=== PATIENT | female | born 1950 | race Caucasian/White ===

== ENCOUNTER 2016-11-14 09:00 | Day surgery (SDC) | payer MEDICARE ==
[~2016-11-14 09:00] MED LIST: Buffered Lidocaine 0.9% SYRIN* 5 ML/SYR SYRINGE INTRADERM ONE
[2016-11-14] MEDS ORDERED: Midazolam* 1 MG/ML 2 ML VIAL (2 MG) ONE (12:05)
[2016-11-14 12:57] VITALS: BP 127/61
[2016-11-14] MEDS ORDERED: Cyclopentolate 1% OPTH.SOL* 2 ML BTL ONE (13:55)
[2016-11-14] MEDS ORDERED: Povidone Iodine 5% OPTH* 30 ML BTL ONE (13:55)
[2016-11-14] MEDS ORDERED: Phenylephrine 2.5% OPTH.SOL* 2 ML BTL ONE (13:55)
[2016-11-14] MEDS ORDERED: Flurbiprofen 0.03% OPTH.SOL* 2.5 ML BTL ONE (13:55)
[2016-11-14] MEDS ORDERED: acetaZOLAMIDE TAB* 250 MG ONE (13:55)
[2016-11-14] MEDS ORDERED: Proparacaine 0.5% OPHTH.SOL* 15 ML BTL ONE (13:55)
[2016-11-14] MEDS ORDERED: Lidocaine 1% MPF* 2 ML VIAL ONE (13:55)
[2016-11-14] MEDS ORDERED: Lidocaine 1% MPF wEPI 200,000* 30 ML SDV ONE (13:55)
[2016-11-14] MEDS ORDERED: Neomycin/Polymy/Dex OPTH.SUSP* MAXITROL 0.1% 5 ML ONE (13:55)
[2016-11-14] MEDS ORDERED: Buffered Lidocaine 0.9% SYRIN* 5 ML/SYR SYRINGE ONE (13:55)
--- NOTE | 2016-11-14 14:10 | OP ---
DATE OF OPERATION: 11/14/2016 - [facility] DATE OF : 1950. SURGEON: Noe Alford M.D. PREOPERATIVE DIAGNOSIS: Cataract right eye. POSTOPERATIVE DIAGNOSIS: Cataract right eye. OPERATIVE PROCEDURE: Phacoemulsification right eye with IOL. DESCRIPTION OF PROCEDURE: The patient was brought to the operating room after being given 1/2% Alcaine with epinephrine drops in the preoperative area. The eye was prepped and draped in the usual sterile fashion. Sterile drape and eyelid speculum were placed. Again, topical 1/2% Alcaine with epinephrine was given. A paracentesis incision was made at the 9 o'clock position with the No.75 blade. Clear cornea incision 2.2 x 2.2-mm was created at the 12 o'clock position starting at the anterior limbus using the 2.2-mm keratome. The anterior chamber was irrigated with 0.4 mL of 1% non-preservative intracameral lidocaine and filled with DisCoVisc. A capsulorrhexis was completed using the cystotome and the Utrata forceps. Hydrodissection was performed with balanced salt solution. The lens nucleus was removed with the Phacoemulsification handpiece without incident. Cortex was removed with the irrigation-aspiration handpiece. The capsular bag was re-inflated using DisCoVisc and an [id number] implant was inserted with the shooter. The irrigation-aspiration handpiece was used to remove all residual DisCoVisc. The eye was refilled with balanced salt solution and the wound checked and found to be watertight. Topical Maxitrol drops were given. [id number]/[facility] #: [id number] [facility]
== END 2016-11-14 12:47 | disposition home or self-care (01) ==
LOC: OREAST 09:00
PROVIDERS: ATTEND Specialist
PROC: 08RJ3JZ Replacement of Right Lens with Synthetic Substitute, Percutaneous Approach (ICD-10-PCS; principal; 2016-11-14 11:15)
DX: H25.811 Combined forms of age-related cataract, right eye (principal); F17.210 Nicotine dependence, cigarettes, uncomplicated; Z88.0 Allergy status to penicillin
CPT/HCPCS: A9270-GY; J2001; J2250; V2632

== ENCOUNTER 2016-11-21 06:34 | Day surgery (SDC) | payer MEDICARE ==
[2016-11-21] MEDS ORDERED: Proparacaine 0.5% OPHTH.SOL* 15 ML BTL ONE (07:37)
[2016-11-21] MEDS ORDERED: Neomycin/Polymy/Dex OPTH.SUSP* MAXITROL 0.1% 5 ML ONE (07:37)
[2016-11-21] MEDS ORDERED: Povidone Iodine 5% OPTH* 30 ML BTL ONE (07:37)
[2016-11-21] MEDS ORDERED: Flurbiprofen 0.03% OPTH.SOL* 2.5 ML BTL ONE (07:37)
[2016-11-21] MEDS ORDERED: Phenylephrine 2.5% OPTH.SOL* 2 ML BTL ONE (07:37)
[2016-11-21] MEDS ORDERED: Buffered Lidocaine 0.9% SYRIN* 5 ML/SYR SYRINGE ONE (07:37)
[2016-11-21] MEDS ORDERED: Lidocaine 1% MPF wEPI 200,000* 30 ML SDV ONE (07:37)
[2016-11-21] MEDS ORDERED: Cyclopentolate 1% OPTH.SOL* 2 ML BTL ONE (07:37)
[2016-11-21] MEDS ORDERED: acetaZOLAMIDE TAB* 250 MG ONE (07:37)
[2016-11-21] MEDS ORDERED: Lidocaine 1% MPF* 2 ML VIAL ONE (07:37)
[2016-11-21] MEDS ORDERED: Midazolam* 1 MG/ML 2 ML VIAL (2 MG) ONE (08:11)
[2016-11-21 08:52] VITALS: BP 138/59
--- NOTE | 2016-11-21 09:14 | OP ---
DATE OF OPERATION: 11/21/2016 - [facility] DATE OF : 1950. SURGEON: Noe Alford M.D. PREOPERATIVE DIAGNOSIS: Cataract left eye. POSTOPERATIVE DIAGNOSIS: Cataract left eye. OPERATIVE PROCEDURE: Phacoemulsification left eye with IOL. DESCRIPTION OF PROCEDURE: The patient was brought to the operating room after being given 1/2% Alcaine with epinephrine drops in the preoperative area. The eye was prepped and draped in the usual sterile fashion. Sterile drape and eyelid speculum were placed. Again, topical 1/2% Alcaine with epinephrine was given. A paracentesis incision was made at the 3 o'clock position with the No.75 blade. Clear cornea incision 2.2 x 2.2-mm was created at the 6 o'clock position starting at the anterior limbus using the 2.2-mm keratome. The anterior chamber was irrigated with 0.4 mL of 1% non-preservative intracameral lidocaine and filled with DisCoVisc. A capsulorrhexis was completed using the cystotome and the Utrata forceps. Hydrodissection was performed with balanced salt solution. The lens nucleus was removed with the Phacoemulsification handpiece without incident. Cortex was removed with the irrigation-aspiration handpiece. The capsular bag was re-inflated using DisCoVisc and an [id number] 26.5 implant was inserted with the shooter. The irrigation-aspiration handpiece was used to remove all residual DisCoVisc. The eye was refilled with balanced salt solution and the wound checked and found to be watertight. Topical Maxitrol drops were given. [id number]/[facility] #: [id number] [facility]
== END 2016-11-21 08:49 | disposition home or self-care (01) ==
LOC: OREAST 06:34
PROVIDERS: ATTEND Specialist
DX: H25.812 Combined forms of age-related cataract, left eye (principal); F17.210 Nicotine dependence, cigarettes, uncomplicated
CPT/HCPCS: A9270-GY; J2001; J2250; V2632

== ENCOUNTER 2017-04-12 08:45 | Inpatient (IN) | payer MEDICARE ==
--- NOTE | 2017-10-25 22:25 | HP ---
AMENDED REPORT NOW INCLUDES COSIGNER DESIGNATION - ESIGNED BEFORE ADJUSTMENT HISTORY AND PHYSICAL: DATE OF ADMISSION/SURGERY: 11/05/17 DATE OF OFFICE VISIT: 10/25/17 SURGEON: Ainsley Vallejo MD *(DICTATED BY JENNA DIANE) PROCEDURE: Right total hip arthroplasty. CHIEF COMPLAINT: Right hip pain. HISTORY OF PRESENT ILLNESS: Ms. Jamison is a 67-year-old female with complaints of right hip pain. She has failed conservative management and elected to proceed with a right total hip arthroplasty, which is scheduled for 11/05/[address] Vallejo. PAST MEDICAL HISTORY: Hypertension, aortic aneurysm, and lung cancer. PAST SURGICAL HISTORY: Tumor removal from her lung, foot surgery, and wisdom teeth extraction. CURRENT MEDICATIONS: 1. Tramadol 50 mg as needed. 2. Aspirin 81 mg as needed. 3. Multivitamin. 4. Vitamin C. 5. Hydrochlorothiazide 25 mg daily. ALLERGIES: To PENICILLIN. FAMILY HISTORY: Diabetes and breast cancer. SOCIAL HISTORY: She is a 67-year-old female. She lives with her . She smokes 2 to 3 cigarettes a day. She denies use of drugs or alcohol. REVIEW OF SYSTEMS: A complete 14-point review of systems was reviewed with the patient. She denies history of DVT, PE, hepatitis, HIV, or anesthesia problems. PHYSICAL EXAMINATION GENERAL: She is well-developed, well-nourished, in no acute distress. VITAL SIGNS: She stands 5 feet 4 inches tall, weighs 123 pounds. Her blood pressure is 123/79 and heart rate is 72. HEENT: Normocephalic, atraumatic. NECK: Supple. No palpable lymph nodes. PULMONARY: The lungs are clear to auscultation. CARDIO: Regular rate and rhythm. Strong S1, S2. ABDOMEN: Soft, nontender, nondistended. NEUROLOGICAL: She is alert and oriented x3. Cranial nerves II through XII are intact. MUSCULOSKELETAL: Right lower extremity, skin is intact. There are no open wounds or abrasions. She walks with an antalgic-type gait favoring her right hip and uses a cane. Range of motion, hip flexion 80 degrees, 0 degrees of internal or external rotation secondary to pain. She has 2+ dorsalis pedis pulses, intact sensation in her lower extremity. Muscle group strengths are intact at 5/5. ASSESSMENT AND PLAN: Ms. 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 She has failed conservative management and elected to proceed with a right total hip arthroplasty, which is scheduled for 11/05/[address] Vallejo discussed the risks and benefits of the surgery at today's visit and all her questions were answered. She will follow up with Dr. Vallejo 2 weeks after the surgery. JENNA DIANE [id number]/[facility] #: [id number] [facility]
[2017-11-04] MEDS ORDERED: Buffered Lidocaine 0.9% SYRIN* 5 ML/SYR SYRINGE INTRADERM ONE (17:00)
--- OUTSIDE RECORDS SUMMARY | 2017-11-05 10:29 | XMS REPORT ---
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 PayID: [id number] [address] [address] [place] [address] Problems Description No Information Family History Date Family Member(s) Problem(s) Comments General Brain Tumor General Diabetes General Cancer, Breast Social History Type Date Description Comments Marital Status Lives With 2 adult children children live independently Lives With Spouse Occupation Retired [employer] Cigarette Use Patient is a current cigarette Smoked ~1 PPD for 55 years. Has smoker, smokes every day quit for her surgery, plans to start again. ETOH Use Never used alcohol Smoking Patient is a former smoker Smoking Patient is a current smoker, smokes every day Allergies, Adverse Reactions, Alerts Date Description Reaction Status Severity Comments 03/29/2017 Penicillin active Medications Medication Date Status Form Strength Qnty SIG Indications Ordering Provider Hydrochlorothiazide 09/06 Active Tablets 25mg 30tab 1 by s mouth Heetderalex every , MD day Multivitamin Gummies Active Chewtabs one a Unknown / day Aspir-Low Active Tablets 81mg 1 by / DR mouth every day Tramadol HCL Active Tablets 50mg 30tab /2-1 Lang s tablet Heetderks by MD lashonda at bedtime Immunizations CPT Code Status Date Vaccine Lot # [id number] Given 03/29/2017 Influenza Vaccine High Dose PF [id number] Refused 10/26/2016 Influenza Virus Vaccine, Quadrivalent, Split, 6-35 Mo, PF Vital Signs Date Vital Result Comment 10/07/2017 Weight 122.00 lb Weight in kg's 55.339 BP Systolic 138 mmHg BP Diastolic 77 mmHg Heart Rate 76 /min Body Temperature 98.3 F O2 % BldC Oximetry 98 % 09/06/2017 Weight 124.00 lb Weight in kg's 56.246 BP Systolic 160 mmHg BP Diastolic 88 mmHg Body Temperature 97.3 F Respiratory Rate 15 /min Height 64 inches 5'4" BMI (Body Mass Index) 21.3 kg/m2 O2 % BldC Oximetry 98 % 04/10/2017 Weight 122.00 lb Weight in kg's 55.339 BP Systolic 160 mmHg BP Diastolic 88 mmHg Heart Rate 72 /min Body Temperature 98.7 F 03/29/2017 Weight 122.00 lb Weight in kg's 55.339 BP Systolic 136 mmHg BP Diastolic 80 mmHg Heart Rate 76 /min Body Temperature 97.5 F 10/26/2016 Weight 124.00 lb Weight in kg's 56.246 BP Systolic 140 mmHg BP Diastolic 67 mmHg Heart Rate 72 /min 09/14/2016 Weight 132.00 lb Weight in kg's 59.875 BP Systolic 162 mmHg BP Diastolic 88 mmHg Heart Rate 76 /min Body Temperature 98.7 F Respiratory Rate 16 /min O2 % BldC Oximetry 94 % 08/31/2016 Weight 138.00 lb Weight in kg's 62.597 BP Systolic 182 mmHg BP Diastolic 106 mmHg Heart Rate 99 /min Body Temperature 97.3 F Respiratory Rate 16 /min Height 64 inches 5'4" BMI (Body Mass Index) 23.7 kg/m2 O2 % BldC Oximetry 98 % Results Test Date Test Result H/L Range Note Platelet Count 05/22/2017 Platelet Count 274 10^3/uL 150-450 Mean Platelet Volume 7 um3 Low 7.4-10.4 Inr/Protime 05/22/2017 Inr 0.88 0.77-1.02 1 Laboratory test finding 05/22/2017 Partial Thrombo Time 29.5 seconds 26.0 -36.3 PTT Basic Metabolic Panel 05/15/2017 Sodium 139 mmol/L 133-145 Potassium 4.7 mmol/L 3.5-5.0 Chloride 105 mmol/L 101-111 Co2 Carbon Dioxide 28 mmol/L 22-32 Anion Gap 6 mmol/L 2-11 Glucose 169 mg/dL High 70-100 Blood Urea Nitrogen 18 mg/dL 6-24 Creatinine 0.99 mg/dL High 0.51-0.95 BUN/Creatinine Ratio 18.2 8-20 Calcium 9.8 mg/dL 8.6-10.3 Egfr Non- 55.6 >60 Egfr 71.5 >60 2 Urinalysis Profile 04/03/2017 Urine Color Yellow Urine Appearance Clear Urine Specific [place] 1.010 1.010-1.030 Urine pH 5.0 5-9 Urine Urobilinogen Negative Negative Urine Ketones Negative Negative Urine Protein 1+(30 mg/dL) Negative Urine Leukocytes Trace Negative Urine Blood 1+ Negative * * Negative 3 Urine Nitrite Negative Negative Urine Bilirubin Negative Negative Urine Glucose Negative Negative Urine White Blood Cell Trace(0-5/hpf) Absent Urine Red Blood Cell 2+(6-10/hpf) Absent Urine Bacteria Absent Absent Urine Squamous Epithelial Cell Present Absent Urine Hyaline Casts Present Absent Type & Screen 04/03/2017 Patient Blood Type O Positive Antibody Screen NEGATIVE Inr/Protime 04/03/2017 Inr 0.88 Low 0.89-1.11 Laboratory test finding 04/03/2017 Partial Thrombo Time 28.0 seconds 26.0 -36.3 PTT Urine Culture And Sensitivities SEE RESULT BELOW 4 CBC Auto Diff 03/29/2017 White Blood Count 9.6 10^3/uL 3.5-10.8 Red Blood Count 5.21 10^6/uL 4.0-5.4 Hemoglobin 11.3 g/dL Low 12.0-16.0 Hematocrit 35 % 35-47 Mean Corpuscular Volume 68 fL Low 80-97 Mean Corpuscular Hemoglobin 22 pg Low 27-31 Mean Corpuscular HGB Conc 32 g/dL 31-36 Red Cell Distribution Width 16 % High 10.5-15 Platelet Count 272 10^3/uL 150-450 Mean Platelet Volume 8 um3 7.4-10.4 Abs Neutrophils 6.9 10^3/uL 1.5-7.7 Abs Lymphocytes 1.8 10^3/uL 1.0-4.8 Abs Monocytes 0.7 10^3/uL 0-0.8 Abs Eosinophils 0.1 10^3/uL 0-0.6 Abs Basophils 0.1 10^3/uL 0-0.2 Abs Nucleated RBC 0 10^3/uL Granulocyte % 71.9 % 38-83 Lymphocyte % 18.5 % Low 25-47 Monocyte % 7.4 % 1-9 Eosinophil % 1.5 % 0-6 Basophil % 0.7 % 0-2 Nucleated Red Blood Cells % 0 Comp Metabolic Panel 03/29/2017 Sodium 142 mmol/L 133-145 Potassium 4.6 mmol/L 3.5-5.0 Chloride 110 mmol/L 101-111 Co2 Carbon Dioxide 28 mmol/L 22-32 Anion Gap 4 mmol/L 2-11 Glucose 91 mg/dL 70-100 Blood Urea Nitrogen 21 mg/dL 6-24 Creatinine 0.98 mg/dL High 0.51-0.95 BUN/Creatinine Ratio 21.4 High 8-20 Calcium 9.5 mg/dL 8.6-10.3 Total Protein 6.4 g/dL 6.4-8.9 Albumin 3.5 g/dL 3.2-5.2 Globulin 2.9 g/dL 2-4 Albumin/Globulin Ratio 1.2 1-3 Total Bilirubin 0.40 mg/dL 0.2-1.0 Alkaline Phosphatase 73 U/L 34-104 Alt 12 U/L 7-52 Ast 14 U/L 13-39 Egfr Non- 56.3 >60 Egfr 72.4 >60 5 Laboratory test finding 03/29/2017 Ferritin 98.8 ng/mL 11-307 6 Iron & Iron Binding Capacity 03/29/2017 Iron 57 g/dL 50-212 Unsaturated Iron Binding 293 g/dL Total Iron Binding Capacity 350 g/dL 250-450 % Iron Saturation 16 % 15-55 Laboratory test finding 03/29/2017 Hepatitis C Antibody Nonreactive Nonreactive 7 Pathologist Review (SEE NOTE) 8 1 Please note the change in INR reference range effective 17. 2 Because ethnic data is not always readily available, this report includes an eGFR for both -Americans and non- Americans. The National Kidney Disease Education Program (NKDEP) does not endorse the use of the MDRD equation for patients that are not between the ages of 18 and 70, are , have extremes of body size, muscle mass, or nutritional status, or are non- or non-. According to the National Kidney Foundation, irrespective of diagnosis, the stage of the disease is based on the level of kidney function: Stage Description GFR(mL/min/1.73 m(2)) 1 Kidney damage with normal or decreased GFR 90 2 Kidney damage with mild decrease in GFR 60-89 3 Moderate decrease in GFR 30-59 4 Severe decrease in GFR 15-29 5 Kidney failure <15 (or dialysis) 3 *Ascorbic acid is present which may interfere with detection of blood. 4 SEE RESULT BELOW Name: HEATHER JAMISON : [address]: Ainsley Vallejo MD Acct: [id number] Unit: [id number] AGE: 67 Location: [facility] Re04/03/17 SEX: F Status: REG REF SPEC: [id number] CHANDA: 04/03/[address] [facility] [address]: Ainsley Vallejo MD REQ: [id number] RECD: 04/03/17 STATUS: ANGELICA HERNANDEZ DR: Lang Gan MD _ SOURCE: URINE SPDESC: ORDERED: Urine Culture QUERIES: Urine Source: Random Procedure Result Reported Site Urine Culture Final 04/04/17- 1410 ML No Growth (<1,000 CFU/mL) * ML - MAIN LAB (PSC1) . END OF REPORT * ML=Testing performed at Main Lab DEPARTMENT OF PATHOLOGY, [address] [place] [address] Dawson Triana M.D. Director [facility] # [id number] 5 Because ethnic data is not always readily available, this report includes an eGFR for both -Americans and non- Americans. The National Kidney Disease Education Program (NKDEP) does not endorse the use of the MDRD equation for patients that are not between the ages of 18 and 70, are , have extremes of body size, muscle mass, or nutritional status, or are non- or non-. According to the National Kidney Foundation, irrespective of diagnosis, the stage of the disease is based on the level of kidney function: Stage Description GFR(mL/min/1.73 m(2)) 1 Kidney damage with normal or decreased GFR 90 2 Kidney damage with mild decrease in GFR 60-89 3 Moderate decrease in GFR 30-59 4 Severe decrease in GFR 15-29 5 Kidney failure <15 (or dialysis) 6 [id number] Microcytic anemia. Reviewed by Shannen Almonte MD Procedures Date CPT Code Description Status 03/29/2017 29962 EKG, at Least 12 Leads w/Interpretation and Report Completed Encounters Type Date Location Provider CPT E/M Dx Office Visit 09/06/2017 2:00p [place] [address] M16.9 I10 C34.92 Office Visit 04/10/2017 2:15p [place] [address] M16.9 I73.9 R91.1 Office Visit 03/29/2017 11:00a [place] [address] M16.9 Z11.59 Z23 Office Visit 10/26/2016 11:15a [place] [address] H28 Office Visit 09/14/2016 10:30a [place] [address] M25.551 I10 Office Visit 08/31/2016 8:00a [place] [address] M25.551 R03.0 Plan of Care 10/07/2017 - Lang Mckenzie MDZ01.818 Encounter for other preprocedural examinationComments:The patient is estimated to be LOW risk for an INTERMEDIATE risk surgery. She will hold her 81 mg ASA prior to surgery.No chronic medical issues need to be optimized prior to the operation. Her HTN is well controlled on minimal treatment. Her lung cancer has been treated surgically, and seems to be inactive. Her CT surgeon has signed off on waiting to treat her thoracic aortic aneurysm until after the surgery. Her PAD is problematic for her, but Dr. Gan has reportedly also signed off on waiting.There were no factors identified to delay an elective procedure. We would recommend proceeding with the planned procedure. She has no known CAD or arrhythmia, and has had a recent echocardiogram. I'm notsure waiting for a drawer in stitch bonding machine to sign off as well would add a lot to her care at this point.M16.9 Osteoarthritis of hip, [id number] Pain in right hip
--- OUTSIDE RECORDS SUMMARY | 2017-11-05 10:29 | XMS REPORT ---
:1950 External Reference #:[id number] Author Organization [facility] Address [address] [address] Phone [phone] Care Team Providers Name Role Phone Lang Mckenzie MD Primary Care Physician Unavailable Payers Type Date Identification Payment Subscriber Numbers Provider Health Maintenance Effective: Policy Number: Medicare Kye Curiel (O) 09/24/2016 [id number] [facility] Michelle Group Number: [id number] [address] [address] PayID: [id number] [place] [address] Problems Date Description Provider Status Onset: 10/08/2016 Localized, primary osteoarthritis of Ainsley Vallejo M.D. Active the pelvic region and thigh Onset: 10/08/2016 Aseptic necrosis of head of femur Ainsley Vallejo M.D. Active Onset: 01/16/2017 Atherosclerosis of arteries of the Mamadou Gan M.D. Active extremities Onset: 01/16/2017 Arthralgia of the pelvic region and Mamadou Gan M.D. Active thigh Onset: 01/16/2017 Nicotine dependence, cigarettes, w oth Mamadou Gan M.D. Active disorders Onset: 01/16/2017 Abdominal aortic aneurysm without Mamadou Gan M.D. Active rupture Family History Date Family Member(s) Problem(s) Comments General Cancer Social History Type Date Description Comments Lives With Spouse Occupation Retired ETOH Use Denies alcohol use Smoking Patient is a current smoker, smokes every 1/2 -1 ppd day Daily Caffeine Consumes on average 4 cups of regular coffee per day Exercise Type/Frequency Exercises sporadically Allergies, Adverse Reactions, Alerts Date Description Reaction Status Severity Comments 10/08/2016 Penicillin active Medications Medication Date Status Form Strength Qnty SIG Indications Ordering Provider Coumadin 04/03 Active Tablets 2mg 90tab take 1-3 s tabs by Yoni, mouth at 5 M.D. at night as directed. do not take before surgery. Oxycodone-Acetamin 04/03 Active Tablets 5-325mg 90tab 1-2 tabs by Ainsley s mouth every Yoni, 4-6 hours M.D. as needed for post-op pain Stool Softener 04/03 Active Capsules 100mg 90cap 1 by mouth s 2-3 times Yoni, daily while M.D. on narcotic pain medication Tramadol HCL 02/04 Active Tablets 50mg 60tab 1 tablet by M25.551 s mouth every Yoni, 6 hours as M.D. needed pain Aspirin Low Dose 01/16 Active Tablets 81mg 360ta Take one 81 I70.221 Mamadou Ashby /2016 DR zayas mg tablet Malik, by mouth M.D. daily for life. Multivitamin Active daily Unknown /0000 Vitamin C 00 Active daily Unknown /0000 Melatonin Active Capsules 3mg 1 tab by Unknown /0000 mouth every night at bedtime Hydrochlorothiazid Active Tablets 25mg 1 by mouth Unknown e /0000 every day Clopidogrel 01/16 Hx Tablets 75mg 180ta Take 75 mg I70.221 Mamaduo Ashby Bisulf bs tablet by Malik, - mouth daily M.D. 04/02 to one week prior to endovascula r surgery with Dr. Gan. Ibuprofen Hx Tablets 200mg 2-3 tablets Unknown /0000 as needed - 01/25 Vital Signs Date Vital Result Comment 10/25/2017 Height 64 inches 5'4" Weight 123.00 lb BP Systolic 123 mmHg BP Diastolic 79 mmHg Respiratory Rate 16 /min Pain Level 5 BMI (Body Mass Index) 21.1 kg/m2 10/04/2017 Height 64 inches 5'4" Weight 123.00 lb Respiratory Rate 16 /min Pain Level 5 BMI (Body Mass Index) 21.1 kg/m2 04/03/2017 Height 64 inches 5'4" Weight 123.00 lb Heart Rate 72 /min BP Systolic 139 mmHg BP Diastolic 72 mmHg BMI (Body Mass Index) 21.1 kg/m2 02/04/2017 Height 64 inches 5'4" Weight 120.00 lb BP Systolic 128 mmHg BP Diastolic 77 mmHg Respiratory Rate 16 /min Body Temperature 97.8 F Pain Level 8 BMI (Body Mass Index) 20.6 kg/m2 01/16/2017 Height 64 inches 5'4" Weight 119.38 lb w/ shoes Heart Rate 74 /min BP Systolic Sitting 178 mmHg Ra reg cuff BP Diastolic Sitting 88 mmHg Ra reg cuff BMI (Body Mass Index) 20.5 kg/m2 10/08/2016 Height 64 inches 5'4" Weight 125.00 lb Heart Rate 73 /min BP Systolic 148 mmHg BP Diastolic 71 mmHg BMI (Body Mass Index) 21.5 kg/m2 Results Test Date Test Result H/L Range Note Laboratory test 05/22/2017 Cytology Non-Sleep Lab Technician SEE RESULT BELOW 1 finding Laboratory test 05/22/2017 Cytology Non-Sleep Lab Technician SEE RESULT BELOW 2 finding Platelet Count 05/22/2017 Platelet Count 274 10^3/uL 150-450 Mean Platelet Volume 7 um3 Low 7.4-10.4 Inr/Protime 05/22/2017 Inr 0.88 0.77-1.02 3 Laboratory test finding 05/22/2017 Partial Thrombo Time [...] Egfr Non- 55.6 >60 Egfr 71.5 >60 4 Inr/Protime 04/03/2017 Inr 0.88 Low 0.89-1.11 Laboratory test finding 04/03/2017 Partial Thrombo 28.0 seconds 26.0- 36.3 Time PTT Urine Culture And 04/03/2017 Urine Culture SEE RESULT BELOW 5 Sensitivities Type & Screen 04/03/2017 Patient Blood O Positive Type Antibody Screen NEGATIVE Urinalysis Profile 04/03/2017 Urine Color Yellow Urine Appearance Clear Urine Specific [place] 1.010 1.010-1.030 Urine pH 5.0 5-9 Urine Urobilinogen Negative Negative Urine Ketones Negative Negative Urine Protein 1+(30 mg/dL) Negative Urine Leukocytes Trace Negative Urine Blood 1+ Negative * * Negative 6 Urine Nitrite Negative Negative Urine Bilirubin Negative Negative Urine Glucose Negative Negative Urine White Blood Cell Trace(0-5/hpf) Absent Urine Red Blood Cell 2+(6-10/hpf) Absent Urine Bacteria Absent Absent Urine Squamous Epithelial Cell Present Absent Urine Hyaline Casts Present Absent Basic Metabolic Panel 02/11/2017 Sodium 140 mmol/L 133-145 Potassium 4.2 mmol/L 3.5-5.0 Chloride 108 mmol/L 101-111 Co2 Carbon Dioxide 28 mmol/L 22-32 Anion Gap 4 mmol/L 2-11 Glucose 105 mg/dL High 70-100 Blood Urea Nitrogen 24 mg/dL 6-24 Creatinine 0.98 mg/dL High 0.51-0.95 BUN/Creatinine Ratio 24.5 High 8-20 Calcium 9.5 mg/dL 8.6-10.3 Egfr Non- 56.3 >60 Egfr 72.4 >60 7 1 SEE RESULT BELOW Name: MICHELLEHEATHER : [address]: Maci Silva MD Acct: [id number] Unit: [id number] AGE: 67 Location: Re05/22/17 SEX: F Status: REG REF SPEC: [id number] CHANDA: 05/22/17-[address] [facility] [address]: Maci Silva MD REQ: [id number] RECD: 05/22/17-150 STATUS: NIKKI HERNANDEZ DR: Mamadou Gan MD _ ORDERED: FNA-IMG GUID BX, PTH HANDLING CH, CY ADEQ-ADDL P, LEVEL 4, CYTO ADEQ-1ST IMMUNO-FIRST, IMMUNO-ADDL/6, IMMUNO-QUANT BRAF has been performed at [place], [place]. The testing reveals: / (Original report scanned into Pathology Results). EGFR has been performed at [place], [place]. The testing reveals: / (Original report scanned into Pathology Results). Addendum Signed (signature on file) Dawson Triana MD 1154 FINAL DIAGNOSIS CONTINUED ON NEXT PAGE * ML=Testing performed at Main Lab DEPARTMENT OF PATHOLOGY, [address] [place] [address] Dawson Triana M.D. Director [facility] # [id number] RUN DATE: 06/04/[address] [facility] LAB LIVE PAGE 2 Patient: MICHELLEHEATHER [id number] (Continued) FINAL DIAGNOSIS (Continued) Lung, right, CT guided fine needle aspiration: -- Malignant- moderately differentiated adenocarcinoma. See comment. Comment: The aspirate smears and formalin fixed cell block demonstrate cohesive cytologically malignant epithelial elements demonstrating moderate nuclear pleomorphism and arranged in small clusters and papillary groups. Some cells demonstrate vaguely columnar morphology with focal cytoplasmic mucin. The following histochemical stains were performed with appropriate controls on formalin fixed cell block material Chromogranin negative ALK negative PDL 1 negative, 0% tumor, less than 10% lymphocytes. CK7 strong diffuse positive CK20 negative TTF-1 strong nuclear positive CD56 negative Synaptophysin negative CK5/6 weak focal staining The morphologic features and immunohistochemical staining pattern support the above rendered diagnosis. Additional studies for EGFR and Ros-1 mutations are pending and will be reported in an addendum Dr. Almonte has reviewed this case and concurs. A cell block was prepared in the evaluation of this specimen. Smears and cell block reveal similar findings. CONTINUED ON NEXT PAGE * ML=Testing performed at Main Lab DEPARTMENT OF PATHOLOGY, [address] [place] [address] Dawson Triana M.D. Director [facility] # [id number] RUN DATE: 06/04/[address] [facility] LAB LIVE PAGE 3 Patient: BEBA JAMISONJose R Bang [id number] (Continued) SPECIMEN(S) RECEIVED: (Continued) LUNG RIGHT - CT GUIDED FINE NEEDLE ASPIRATION CLINICAL HISTORY Right lung mass IMMEDIATE INTERPRETATION Pass 1-inadequate, pass 2-[address] Guided fine needle aspiration x 4 passes, 3 alcohol fixed slides and 2 needle rinse in formalin for cell blocks [id number] and [id number]. Signed (signature on file) Dawson Triana MD 1242 END OF REPORT * ML=Testing performed at Main Lab DEPARTMENT OF PATHOLOGY, [address] [place] [address] Dawson Triana M.D. Director [facility] # [id number] 2 SEE RESULT BELOW Name: HEATHER JAMISON : [address]: Maci Silva MD Acct: [id number] Unit: [id number] AGE: 67 Location: SP Re05/22/17 SEX: F Status: REG REF SPEC: [id number] CHANDA: 05/22/[address]: Maci Silva MD REQ: [id number] RECD: 05/22/17 STATUS: NIKKI HERNANDEZ DR: Mamadou Gan MD _ ORDERED: FNA-IMG GUID BX, PTH HANDLING CH, CY ADEQ-ADDL P, LEVEL 4, CYTO ADEQ-1ST IMMUNO-FIRST, IMMUNO-ADDL/6, IMMUNO-QUANT ROS1 has been performed at [place], [place]. The testing reveals: (Original report scanned into Pathology Results). Addendum Signed (signature on file) Dawson Triana MD 1242 BRAF has been performed at [place], [place]. The testing reveals: / (Original report scanned into Pathology Results). EGFR has been performed at [place], [place]. The testing reveals: / CONTINUED ON NEXT PAGE * ML=Testing performed at Main Lab DEPARTMENT OF PATHOLOGY, [address] [place] [address] Dawson Triana M.D. Director [facility] # [id number] RUN DATE: 06/06/[address] [facility] LAB LIVE PAGE 2 Patient: HEATHER JAMISON [id number] (Continued) ADDENDUM (Continued) (Original report scanned into Pathology Results). Addendum Signed (signature on file) Dawson Triana MD 1154 FINAL DIAGNOSIS Lung, right, CT guided fine needle aspiration: -- Malignant- moderately differentiated adenocarcinoma. See comment. Comment: The aspirate smears and formalin fixed cell block demonstrate cohesive cytologically malignant epithelial elements demonstrating moderate nuclear pleomorphism and arranged in small clusters and papillary groups. Some cells demonstrate vaguely columnar morphology with focal cytoplasmic mucin. The following histochemical stains were performed with appropriate controls on formalin fixed cell block material Chromogranin negative ALK negative PDL 1 negative, 0% tumor, less than 10% lymphocytes. CK7 strong diffuse positive CK20 negative TTF-1 strong nuclear positive CD56 negative Synaptophysin negative CK5/6 weak focal staining The morphologic features and immunohistochemical staining CONTINUED ON NEXT PAGE * ML=Testing performed at Main Lab DEPARTMENT OF PATHOLOGY, [address] [place] [address] Dawson Triana M.D. Director [facility] # [id number] RUN DATE: 06/06/[address] [facility] LAB LIVE PAGE 3 Patient: HEATHER JAMISON [id number] (Continued) SPECIMEN COMMENTS (Continued) pattern support the above rendered diagnosis. Additional studies for EGFR and Ros-1 mutations are pending and will be reported in an addendum Dr. Almonte has reviewed this case and concurs. A cell block was prepared in the evaluation of this specimen. Smears and cell block reveal similar findings. LUNG RIGHT - CT GUIDED FINE NEEDLE ASPIRATION CLINICAL HISTORY Right lung mass IMMEDIATE INTERPRETATION Pass 1-inadequate, pass 2-[address] Guided fine needle aspiration x 4 passes, 3 alcohol fixed slides and 2 needle rinse in formalin for cell blocks [id number] and [id number]. Signed (signature on file) Dawson Triana MD 1242 END OF REPORT * ML=Testing performed at Main Lab DEPARTMENT OF PATHOLOGY, [address] [place] [address] Dawson Triana M.D. Director [facility] # [id number] 3 Please note the change in INR reference range effective 17. 4 Because ethnic data is not always readily [...] 15-29 5 Kidney failure <15 (or dialysis) 5 SEE RESULT BELOW Name: HEATHER JAMISON : [address]: Ainsley Vallejo MD Acct: [id number] Unit: [id number] AGE: 67 Location: [facility] Re04/03/17 SEX: F Status: REG REF SPEC: [id number] CHANDA: 04/03/17-[address] [facility] [address]: Ainsley Vallejo MD REQ: [id number] RECD: 04/03/17 STATUS: ANGELICA HERNANDEZ DR: Lang Gan MD _ SOURCE: URINE SPDESC: ORDERED: Urine Culture QUERIES: Urine Source: Random Procedure Result Reported Site Urine Culture Final 04/04/17- 1410 ML No Growth (<1,000 CFU/mL) * ML - MAIN LAB ([facility]) . END OF REPORT * ML=Testing performed at Main Lab DEPARTMENT OF PATHOLOGY, [address] [place] [address] Dawson Triana M.D. Director [facility] # [id number] 6 *Ascorbic acid is present which may interfere with detection of blood. 7 Because ethnic data is not always readily [...] 15-29 5 Kidney failure <15 (or dialysis) Procedures Date CPT Code Description Status 07/08/2017 91533 Diffusing Capacity Completed 07/08/2017 11859 Plethysmography Determination Lung Volumes & Per Completed Airway Resist 07/08/2017 05683 Spirometry Incl Graphic Record Completed 02/15/2017 86128 Moderate Sedation Services; Same Phys Each Additional Completed 15 Mins 02/15/2017 28309 Moderate Sedation Services; Same Phys Intl 15 Mins; PT Completed >=5 Years 02/15/2017 89784 Ultrasound Guidance For Vascular Access Completed 02/15/2017 32106 Uxyhh-Nwmcmoioi-Aqvmcpyybw Completed 02/15/2017 66255 Abd.Aortogram Completed 02/15/2017 12237 Catheter/Aorta Completed Encounters Type Date Location Provider CPT E/M Dx Office Visit 10/04/2017 [facility] M.D. 64553 M16.11 1:30p [facility] M87.051 M89.751 M25.551 Office Visit 02/04/2017 1:00p [facility] M.D. 88265 M25.551 [facility] M16.11 Office Visit 01/16/2017 2:30p [facility] Medicine Mamadou Gan, 17546 I70.221 Of Rosangela Timmons M25.551 F17.218 I71.4 Office Visit 10/08/2016 2:15p [facility] M.D. 03582 M25.551 [facility] M87.051 M16.11 Plan of Care Future Appointment(s):11/18/2017 1:30 pm - Ainsley Vallejo M.D. at [facility]11/05/2017 3:30 pm - Foster Baxter PA-C at [facility]11/05/2017 3:30 pm - JENNA Maria at [facility]11/05/2017 3:30 pm - Ainsley Vallejo M.D. at [facility]10/25/2017 - Ainsley Vallejo M.D.M25.551 Pain in right hipFollow up:Follow up: 2 weeks aftger noxlqdbT04.11 Unilateral primary osteoarthritis, right hip
[2017-11-05] MEDS ORDERED: Clindamycin 900 MG IVPREMIX(* 900 MG/50 ML SDV IV ONE (11:20)
[2017-11-05] MEDS ORDERED: Buffered Lidocaine 0.9% SYRIN* 5 ML/SYR SYRINGE ONE (11:23)
[2017-11-05] MEDS ORDERED: Midazolam* 1 MG/ML 5 ML VIAL (5 MG) ONE (12:17)
[2017-11-05] MEDS ORDERED: fentaNYL* 50 MCG/ML 2 ML VIAL (100 MCG VIAL) ONE (12:17)
[2017-11-05] MEDS ORDERED: Morphine PF AMP (0.5MG/ML)* 5 MG/10 ML AMP ONE (13:22)
[2017-11-05] MEDS ORDERED: Bupivacaine 0.5% PF 10 ML VIAL INJ ONE (13:37)
[2017-11-05] MEDS ORDERED: Lidocaine 2% PF * 5 ML VIAL ONE (13:37)
[2017-11-05] MEDS ORDERED: Bupivacaine 0.5% SDV PF* 30ML VIAL ONE (13:41)
--- NOTE | 2017-11-05 15:12 | RAD ---
INDICATION: Right hip total replacement surgery. COMPARISON: Comparison is made with a prior x-ray study of the right hip from October 05, 2015. TECHNIQUE: A single portable x-ray study of the right hip was obtained in the operating room in the AP projection. FINDINGS: The patient is undergoing a total right hip replacement surgery. The acetabular prostheses is in place. There is also a femoral prostheses template in place. IMPRESSION: INTRAOPERATIVE CONTROL FILMS.
[2017-11-05] MEDS ORDERED: Ibuprofen TAB* 400 MG PO PRN (16:01)
[2017-11-05] MEDS ORDERED: PROCHLORPERAZINE INJ 5 MG/ML 2 ML VIAL IV PRN ×2 (16:01)
[2017-11-05] MEDS ORDERED: Scopolamine 1.5 mg* PATCH TRANSDERM PRN ×2 (16:01)
[2017-11-05] MEDS ORDERED: Nalbuphine* 20 MG/ML 1 ML VIAL IV PRN ×2 (16:01)
[2017-11-05] MEDS ORDERED: fentaNYL* 50 MCG/ML 2 ML VIAL (100 MCG VIAL) IV PRN (16:01)
[2017-11-05] MEDS ORDERED: HYDROcodone/ACETAMIN 5-325 MG* 1 TAB PO PRN ×2 (16:01)
[2017-11-05] MEDS ORDERED: Ondansetron INJ* 2 MG/ML VIAL IV PRN ×2 (16:01)
[2017-11-05] MEDS ORDERED: Metoclopramide IV* 5 MG/ML 2 ML VIAL IV PRN (16:01)
[2017-11-05] MEDS ORDERED: diPHENhydraMINE IV* 50 MG/ML 1 ml VIAL (BENADRYL) IV PRN (16:01)
[2017-11-05] MEDS ORDERED: HYDROmorphone INJ* 1 MG/ML CARPUJECT SYRINGE IV PRN (16:01)
[2017-11-05] MEDS ORDERED: Naloxone* 0.4 MG/ML 1 ML VIAL IV PRN ×2 (16:01)
[2017-11-05] MEDS ORDERED: DiMENhydriNATE IV* 50 MG/ML VIAL IV PUSH PRN ×2 (16:01)
[2017-11-05] MEDS ORDERED: Bisacodyl SUPP* 10 MG SUPP PR PRN (16:06)
[2017-11-05] MEDS ORDERED: Cyclobenzaprine TAB* 10 MG PO PRN (16:06)
[2017-11-05] MEDS ORDERED: Magnesium Hydroxide LIQ* 30 ML UDC PO PRN (16:06)
[2017-11-05] MEDS ORDERED: Acetaminophen TAB* 325 MG PO PRN (16:06)
[2017-11-05] MEDS ORDERED: ceFAZolin 1 GM in Dextrose (*) 1 GM/50 ML BAG IVPB SCH (17:00)
[2017-11-05] MEDS ORDERED: Warfarin TAB(*) 10 MG PO ONE ×2 (17:00→20:30)
--- NOTE | 2017-11-05 17:03 | RAD ---
INDICATION: Status post total right hip replacement surgery. COMPARISON: Comparison is made with a prior study from October 04, 2017. TECHNIQUE: AP and lateral films of the right hip were obtained. FINDINGS: The patient is status post total right hip replacement surgery. The bones and prostheses are in normal alignment. There is a air within the soft tissues consistent with the patient's recent surgery. IMPRESSION: STATUS POST TOTAL RIGHT HIP REPLACEMENT SURGERY.
--- NOTE | 2017-11-05 17:05 | RAD ---
INDICATION: Status post total right hip replacement surgery. COMPARISON: Comparison is made with a prior study from October 04, 2017. TECHNIQUE: An AP view of the pelvis was obtained. FINDINGS: The patient is status post total right hip replacement surgery. The bones and prostheses are in normal alignment. There is air within the soft tissues consistent with the patient's recent surgery. IMPRESSION: STATUS POST TOTAL RIGHT HIP REPLACEMENT SURGERY.
[2017-11-05] MEDS ORDERED: Metoprolol Tartrate TAB* 25 MG PO SCH (18:08)
[2017-11-05] MEDS ORDERED: Metoprolol Tartrate IV* 1 MG/ML 5 ML VIAL IV PRN (18:08)
[2017-11-05] MEDS ORDERED: Metoprolol Tartrate TAB* 25 MG PO ONE (18:47)
[2017-11-05] MEDS: Ibuprofen TAB* 400 MG PO SCH ×2 (20:04→22:52)
[2017-11-05] MEDS: Docusate CAP* 100 MG PO SCH (20:17)
[2017-11-05] MEDS: Magnesium Hydroxide LIQ* 30 ML UDC PO SCH (20:22)
[2017-11-05] MEDS: Clindamycin 900 MG IVPREMIX(* 900 MG/50 ML SDV IV SCH (22:02)
--- NOTE | 2017-11-05 22:32 | CONS ---
CC: Dr. Ainsley Vallejo * CONSULTATION REPORT: DATE OF CONSULT: 11/05/17 CONSULTING PROVIDER: Dr. Ainsley Vallejo. MY ATTENDING WHILE IN THE HOSPITAL: Dr. Kristine Coronel. PRIMARY CARE PROVIDER: Dr. Mckenzie. REASON FOR CONSULT: Co-management of comorbid medical conditions. HISTORY OF PRESENT ILLNESS: Ms. Jamison is a 67-year-old female with past medical history significant for ascending as well as descending aortic aneurysms , hypertension, adenocarcinoma of the lung status post lobectomies, peripheral artery disease with occlusion of the right popliteal artery, as well as osteoarthritis of the right hip possibly due to avascular necrosis. PAST MEDICAL HISTORY: Chronic kidney disease. PAST SURGICAL HISTORY: Lobectomy of lung on 07/29/17, foot surgery, and wisdom tooth extraction. MEDICATIONS: 1. Tramadol 50 mg p.o. as needed. The patient takes 25 mg nightly. 2. Aspirin 81 mg p.o. daily. The patient has not taken this for a week. 3. Multivitamin. 4. Vitamin C. 5. Hydrochlorothiazide 25 mg p.o. daily. The patient has not taken this for 2 days. ALLERGIES: PENICILLIN causes anaphylaxis. FAMILY HISTORY: The patient's mother of brain tumor. The patient's father of an unknown type of metastatic cancer. The patient has a family history of diabetes in an unknown relatives. The patient has several siblings all of whom are healthy. SOCIAL HISTORY: The patient lives with her . 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 The patient has quit smoking 1 month ago, but used to smoke 2 to 3 cigarettes a day and has multi-decade pack year history of smoking. The patient denies alcohol or drug abuse. The patient's surrogate decision maker will be her , Mal Jamison. REVIEW OF SYSTEMS: A 14-point review of systems was reviewed, it is negative except as stated above. PHYSICAL EXAM: General: The patient is a 67-year-old female, who appears her stated age and sitting comfortably in bed, in no acute distress. Vital Signs: At the time of evaluation, temperature 97.9, pulse rate 81, respiratory rate 20 , oxygen saturation 100% on 2 L, blood pressure 152/76. HEENT: Head: Normocephalic, atraumatic. Sclerae anicteric. No conjunctival injection. Nasal mucosa moist. Oral mucosa moist. No oropharyngeal erythema, discharge, or exudate. Neck: Supple, nontender. No lymphadenopathy. No carotid bruit auscultated. No JVD. Cardiac: Regular rate and rhythm. No clicks, murmurs, gallops, or rubs. Pulses 2+ in bilateral dorsalis pedis, posterior tibialis, and radial areas. Respiratory: Clear to auscultation bilaterally. No wheezes , rales, or rhonchi. Good air exchange bilaterally. Abdomen: Soft, nontender , nondistended. Bowel sounds present in all 4 quadrants. Approximately 3 cm pulsatile mass over the epigastric area. Genitourinary: No suprapubic or CVA tenderness. Skin: Clean, dry, and intact except for right hip incision covered by a bulky dressing with no drainage. Neuro: Cranial nerves II through XII intact. The patient has no sensation in her right lower extremity due to nerve block. The patient has no other focal deficits. Psychiatric: Pleasant and cooperative. DIAGNOSTIC STUDIES/LAB DATA: Preoperative laboratory data: White blood cell count 7.7, hemoglobin 11.4, red blood cell count 5.49, MCV 65, MCH 21, RDW 16, platelet count 287. INR of 0.92, APTT 28.2. Chemistry: Sodium 141, potassium 4.3, chloride 104, carbon dioxide 29, anion gap 8, BUN 28, creatinine 1.36. AST 16, ALT 13, alkaline phosphatase 111. Total protein 7.1, albumin 4.0, globulin 3.1. Urine shows positive blood, leukocyte esterase, squamous epithelial cells, hyaline cast with no growth on culture. ASSESSMENT/PLAN AND IMPRESSION: Ms. Jamison is a 67-year-old female with a past medical history significant for multiple aortic aneurysms, hypertension, status post lung cancer resection and peripheral arterial disease, who is status post right total hip arthroplasty and is feeling well, but is moderately hypertensive. 1. Status post right total hip arthroplasty management per primary team. Pain control per primary team. Bowel regimen, monitor her H and H as the patient has baseline anemia. We will also monitor renal function in the postsurgical state. 2. Multiple aortic aneurysms. The patient was cleared for surgery by a vascular surgeon at the [facility]. Besides of the patient's aneurysm is currently unknown based on available records, as there was some concern that have increased drastically from 4.4 to 5.5 cm. On most recent evaluation, the patient, however, has a note from her cardiothoracic surgeon stating that she had that it was a stable asymptomatic aortic aneurysm, there was no need for concern proceeding with surgery; however, this was diff. The patient's aneurysm had increased to 5.5 cm. Previous Cardiology consultation as well as guideline recommendations would recommend repair despite asymptomatic status. We will attempt to get records from [place] and repeat transthoracic echocardiogram if needed. At this time, we will attempt to control the patient's blood pressure with metoprolol given now given her hypertension as well as metoprolol 5 mg IV p.r.n. q.6 hours. Her blood pressure is above 150. We will continue the patient's fluid due to possibility of hypotension and acute kidney injury after surgery. The patient's hydrochlorothiazide while in the hospital will be discontinued and she will be restarted on lisinopril tomorrow at 5 mg daily withhold parameters for hypotension. This will be started due to the patient's chronic kidney disease as well as indication for controlling abdominal aortic aneurysm size and preventing rupture. The patient has been instructed to call if she has any episodes of severe chest or abdominal pain. The patient's vital signs will be monitored closely. 3. Hypertension. See above. The patient will be maintained on lisinopril and metoprolol. 4. Lung cancer. The patient needs no followup according to the cardiothoracic surgeon. The patient had total lobectomies on 07/29/17 and has no current respiratory symptoms. 5. Peripheral vascular disease. The patient has complete occlusion of her popliteal artery with collateralization with a plan for eventual repair with Dr. Gan of Interventional Radiology. We will resume the patient's aspirin at this point as soon as possible after surgery to prevent complications related to peripheral vascular disease. The patient currently has good pulses in her bilateral lower extremities. 6. DVT prophylaxis. Lovenox to warfarin per Orthopedics. 7. FEN. The patient will have fluids at 100 mL an hour and have a regular diet per primary team. 8. Code status: The patient is a full code. The patient's surrogate decision maker is her , Mal Jamison as above. 9. Disposition: Inpatient. Disposition per Orthopedics. TIME SPENT: Approximately 60 minutes was spent on this admission, 30 of which was spent [id number] with the patient obtaining history and physical and discussing the treatment plan. JENNA [id number]/CPS #: [id number] UMER
[2017-11-06] MEDS ORDERED: NS 0.9% 1000 ML* 1,000 ML IV ONE ×2 (03:44→08:47)
[2017-11-06 04:32] LABS: Hematocrit 26 % (35-47); Hemoglobin 8.4 g/dl (12.0-16.0); Mean Platelet Volume 8.3 um3 (7.4-10.4); Platelet Count 177 10^3/ul (150-450)
[2017-11-06 04:48] LABS: EGFR Non-African American 49.8 (>60)
[2017-11-06] MEDS: Ibuprofen TAB* 400 MG PO SCH (04:54)
[2017-11-06] MEDS: Clindamycin 900 MG IVPREMIX(* 900 MG/50 ML SDV IV SCH ×2 (05:33→14:41)
[2017-11-06] MEDS ORDERED: oxyCODONE TAB* 5 MG TAB PO PRN (07:25)
[2017-11-06] MEDS ORDERED: Morphine VIAL* 4 MG/ML VIAL (1 ml vial) IV PRN (07:25)
[2017-11-06] MEDS ORDERED: diPHENhydraMINE IV* 50 MG/ML 1 ml VIAL (BENADRYL) IV PRN (07:25)
[2017-11-06] MEDS ORDERED: Ondansetron INJ* 2 MG/ML VIAL IV PRN (07:25)
[2017-11-06] MEDS ORDERED: Metoprolol Tartrate TAB* 25 MG PO SCH ×2 (09:00)
[2017-11-06] MEDS ORDERED: Lisinopril TAB* 5 MG PO SCH ×3 (09:00)
[2017-11-06] MEDS ORDERED: Hydrochlorothiazide TAB* 25 MG PO SCH (09:00)
[2017-11-06] MEDS: Docusate CAP* 100 MG PO SCH ×2 (09:17→21:38)
[2017-11-06] MEDS: Aspirin EC TAB* 81 MG TAB.EC PO SCH (09:17)
[2017-11-06] MEDS: Magnesium Hydroxide LIQ* 30 ML UDC PO SCH ×2 (09:17→21:52)
[2017-11-06] MEDS: Vitamin THERAPEUTIC TAB PO SCH (09:17)
[2017-11-06 09:31] LABS: INR 1.15 (0.77-1.02)
--- NOTE | 2017-11-06 10:23 | PN ---
Progress Note - Progress Note Date of Service: 11/06/17 SOAP: Subjective: [Pt is a 67 y/o female POD 1 RTHA. She was seen today sitting up in her chair. She states that her pain has been very well controlled and she has been able to get up with physical therapy. She states that she was able to sleep well last night. No complaints at this time. Is interested in discharge tomorrow. Denies any chest pain, SOB. Denies any numbness or tingling. ] Objective: [General: Pt is awake, alert and oriented. No acute distress MSK, RLE: dressing is clean, dry and intact. Pt is able to df/pf. She has full sensation to light touch distally. DP pulse is 2+. Calf is soft and non tender. ] Vital Signs Temp 98.7 F 11/06/17 07:12 Pulse 79 11/06/17 07:12 Resp 16 11/06/17 07:48 BP 87/41 11/06/17 07:12 Pulse Ox 99 11/06/17 07:48 Intake & Output 11/05/17 11/06/17 11/06/17 18:59 06:59 18:59 Intake Total 1350 3337 300 Output Total 305 1750 Balance 1045 1587 300 Weight 122 lb Intake: IV Fluids 1350 1837 CLINDAMYCIN 900 MG 50 LR 1300 853 NS (0.9%) 984 IVPB 50 ABX - CLINDAMYCIN 50 Oral 1450 300 Output: Robertson 275 1500 Residual 30 Robertson 16 Fr 30 Emesis 250 Other: # Bowel Movements 0 Estimated Blood Loss 200 Comment Assessment: [POD 1 RTHA] Plan: [- Continue with pt/ot - INR of 1.15 after 10mg of coumadin last night. 8mg dose tonight. - Continue with current pain medication - Large aortic aneurysm is present. Hospitalists are co-managing, keeping BP within an acceptable range, pain well controlled. - Possible DC home tomorrow. ]
[2017-11-06] MEDS ORDERED: Enoxaparin(*) 40 MG/0.4 ML SYR SUBCUT SCH (12:00)
[2017-11-06] MEDS: oxyCODONE/Acetamin 5/325 MG* TAB PO PRN ×2 (12:06→18:40)
--- NOTE | 2017-11-06 12:48 | OP ---
DATE OF OPERATION: 11/05/17 - ROOM #342 DATE OF : 46 ATTENDING SURGEON: Ainsley Vallejo MD. INVENTORY CLERK: JENNA Marcano. Mr. Baxter did help throughout the procedure with preparation of the leg, wound retraction, manipulation of the hip, and wound closure. ANESTHESIOLOGIST: Dr. Paredes. ANESTHESIA: Spinal. PRE-OP DIAGNOSIS: Avascular necrosis of the right femoral head and resulting severe arthritic changes in the right hip joint. POST-OP DIAGNOSIS: Avascular necrosis of the right femoral head and resulting severe arthritic changes in the right hip joint. OPERATIVE PROCEDURE: Right total hip arthroplasty. ESTIMATED BLOOD LOSS: 300 cc. COMPLICATIONS: None. SPECIMEN: Femoral head and acetabular reaming sent to pathology. HARDWARE USED: This is uncemented [place] total hip arthroplasty hardware. For the cup, a Tritanium cluster hole shell 52D, 2 screws were used in the superoposterior quadrant of length 20 mm and 25 mm. For the polyethylene, a Trident X3 0-degree polyethylene insert 36D was chosen. For the stem, an Accolade TMZF size 3.5 with 132-degree neck angle. For the head, a Biolox delta ceramic V40 femoral head. BRIEF HISTORY/INDICATION: Ms. Jamison is a 67-year-old female with years of increasingly severe right hip pain. She was noted to have avascular necrosis with subchondral collapse of the femoral head and resulting severe endstage arthritis several years ago on x-ray. She had severe pain. She initially was postponed from surgery because of some vascular disease and did have workup with Dr. Gan. Dr. Gan felt that revascularization was optimized and she could proceed with right total hip arthroplasty. The surgery was then delayed because of a diagnosis of lung cancer, which was treated successfully and she was cleared for surgery. Informed consent was obtained from the patient. She understands the risks of surgery included, but were not limited to bleeding, infection, damage to nearby structures, continued pain, need for further surgery , intraoperative fracture, nerve palsy, hardware failure or loosening, dislocation, leg length discrepancy, vascular complications, respiratory distress, bleeding, blood clot, stroke, heart attack, and . The patient wished to proceed. Specific to this patient with a high risk of vascular complications due to her known aneurysm and peripheral vascular disease. Also increased risk of respiratory or heart problems because of the patient recently treated lung cancer. She also has increased risk of blood clot due to her vascular disease and recent cancer. The patient understood all these risks and was adamant that she wished to proceed with the total hip arthroplasty despite the risk because of the severe pain. INTRAOPERATIVE FINDINGS: Intraoperatively, the patient's femoral head was completely deformed with loss of at least half of the femoral head. Her acetabular bone was also extremely deformed with loss of most of the anterior and superior wall. DESCRIPTION OF PROCEDURE: Ms. Jamison was identified in the preanesthesia unit. Her right lower extremity was marked as the correct operative side. Informed consent was signed and placed in the chart. The patient was taken to the operating room and placed under spinal anesthesia. A Robertson catheter was placed. The patient was placed in the left lateral decubitus position on the pegboard. All bony prominences were well padded. Right lower extremity was prepped and draped in the usual sterile fashion. Preop time-out was made to correctly identify the patient's side and site. Appropriate perioperative antibiotics were given within 1 hour of incision. A 10-cm posterior hip incision was made with a 10 blade and carried down to the lateral fascial layer. Lateral fascial layer was incised in line with the skin incision. A Charnley retractor was placed. The piriformis and conjoint tendons were identified and elevated off the posterolateral femur using electrocautery. These were tagged with #5 Ethibond. Next, electrocautery was used to make a posterolateral capsular flap and this was tagged with #5 Ethibond. The hip was carefully dislocated. Lesser troch to the center of the femoral head was estimated at 58 mm. Oscillating saw was used to make the appropriate femoral neck cut. The femoral head had complete deformation with loss of half of the volume due to subchondral collapse and wear. The femur was carefully retracted anteriorly. After appropriate placement of retractors, the acetabulum was easily visualized. There was extensive acetabular wear with loss of the normal anatomy of the anterior and superior acetabular wall. After appropriate placement of retractors, the acetabulum was easily visualized. A long-handled knife was used to sharply remove any remaining labrum from the acetabular rim. The acetabulum was carefully, slowly, and meticulously reamed up to a size 51. A hemispherical shape was obtained with some bleeding subchondral bone. A 51 trial had excellent fit and stability with appropriate anteversion and abduction angle. A Tritanium cluster hole shell 52D was chosen as the final implant. This was impacted into position without difficulty. Stability of the cup was excellent with appropriate anteversion and abduction angle. A 25-mm screw and a 20-mm screw was placed in the superoposterior quadrant for extra stability. A 36D Trident X3 0-degree liner was chosen as the final implant. This was locked into position in the acetabular shell without difficulty. Stability of the liner was checked and rechecked and noted to be stable. Next, attention was turned to preparation of the femur. A canal finder was used to enter the proximal femur. Proximal femur was sequentially broached up to a size 3.5. 3.5 broach had excellent stability and appropriate anteversion. A 132 neck trial was chosen with a 36 +0 head trial. Lesser troch to center of the femoral head measured 60 mm. The hip was reduced and taken through a range of motion. The hip was stable in all positions. There was appropriate soft tissue tension and leg length. The hip was dislocated. All trials were removed. Final implant chosen was an Accolade TMZF size 3.5 with a 132-degree neck. This was impacted into the femoral canal without difficulty. The stem was quite stable. It did sit up 2 more millimeters on the broach. Final head chosen therefore was a 36 -2.5 Biolox delta ceramic V40 femoral head. This was impacted on to the femoral neck without difficulty. Lesser troch to center of the femoral head measured 59 mm. The hip was reduced and taken through a range of motion. The hip was stable in all positions. There was appropriate soft tissue tension and leg length. The hip was copiously irrigated with sterile saline. Previously tagged capsule and tendons were reapproximated to the posterolateral femur through 2 trochanteric drill holes. The lateral fascial layer was closed using interrupted #1 Vicryls. The rest of the incision was closed in a layered fashion using 0 and 2-0 Vicryls. Skin was closed using running 3-0 Monocryl suture and Dermabond. Sterile Adaptic, 4x4s, and paper tape were used to cover the incision. The patient's anesthesia was reversed without difficulty. She was taken to the PACU in stable condition. Intended weightbearing will be weightbearing as tolerated. Intended DVT prophylaxis will be Coumadin with a Lovenox bridge. [id number]/[facility] #: [id number] UMER
--- NOTE | 2017-11-06 14:11 | PN ---
Subjective Date of Service: 11/06/17 Interval History: Patient feels very good today. No Pain at rest, working well with PT/OT. No dizziness, Palpitations, CP, SOB, N/V, abdominal pain, dysuria, or other pain. No numbness or tingling in arms or legs. Family History: Unchanged from Admission Social History: Unchanged from Admission Past Medical History: Unchanged from Admission Objective Active Medications: Acetaminophen (Tylenol Tab*) 650 mg PO Q4H PRN PRN Reason: PAIN OR TEMPERATURE Aspirin (Aspirin Ec Tab*) 81 mg PO QAM [facility] Last Admin: 11/06/17 09:17 Dose: 81 mg Bisacodyl (Dulcolax Supp*) 10 mg DE DAILY PRN PRN Reason: constipation Cyclobenzaprine HCl (Flexeril Tab*) 5 mg PO TID PRN PRN Reason: SPASMS Diphenhydramine HCl (Benadryl Iv*) 25 mg IV Q6H PRN PRN Reason: itching Docusate Sodium (Colace Cap*) 100 mg PO BID [facility] Last Admin: 11/06/17 09:17 Dose: 100 mg Enoxaparin Sodium (Lovenox(*)) 40 mg SUBCUT Q24H [facility] Last Admin: 11/06/17 12:06 Dose: 40 mg Lactated Ringer's (Lactated Ringers 1000 Ml Bag*) 1,000 mls @ 100 mls/hr IV PER RATE [facility] Last Admin: 11/06/17 10:23 Dose: 100 mls/hr Clindamycin HCl/Dextrose (Cleocin 900 Mg Ivpremix (*) Sdv) 900 mg in 50 mls @ 100 mls/hr IV Q8H [facility] Last Admin: 11/06/17 05:33 Dose: 100 mls/hr Lactulose (Lactulose*) 30 ml PO Q6H PRN PRN Reason: constipation Magnesium Hydroxide (Milk Of Magnesia Liq*) 30 ml PO BID [facility] Last Admin: 11/06/17 09:17 Dose: 30 ml Magnesium Hydroxide (Milk Of Magnesia Liq*) 30 ml PO Q6H PRN PRN Reason: constipation Metoprolol Tartrate (Lopressor Iv*) 5 mg IV Q6H PRN PRN Reason: BLOOD PRESSURE Morphine Sulfate (Morphine Vial*) 2 mg IV Q2H PRN PRN Reason: PAIN Multivitamins (Theragran Tab*) 1 tab PO DAILY BABS Last Admin: 11/06/17 09:17 Dose: 1 tab Nalbuphine HCl (Nubain*) 5 mg IV ONCE PRN PRN Reason: NAUSEA/VOMITING Ondansetron HCl (Zofran Inj*) 4 mg IV ONCE PRN PRN Reason: NAUSEA/VOMITING Ondansetron HCl (Zofran Inj*) 4 mg IV Q6H PRN PRN Reason: nausea Oxycodone HCl (Roxycodone Tab*) 10 mg PO Q4H PRN PRN Reason: PAIN - SEVERE Oxycodone/Acetaminophen (Percocet 5/325 Tab*) 2 tab PO Q4H PRN PRN Reason: PAIN Oxycodone/Acetaminophen (Percocet 5/325 Tab*) 1 tab PO Q4H PRN PRN Reason: PAIN Last Admin: 11/06/17 12:06 Dose: 1 tab Prochlorperazine Edisylate (Compazine Inj*) 5 mg IV ONCE PRN PRN Reason: NAUSEA/VOMITING Scopolamine (Transderm-Scop 1.5 Mg Patch*) 1 patch TRANSDERM Q72H PRN PRN Reason: Nausea/Vomiting Scopolamine (Transderm-Scop 1.5 Mg Patch*) 1 patch TRANSDERM Q72H PRN PRN Reason: nausea Warfarin Sodium (Coumadin Tab(*)) 8 mg PO ONCE@1700 ONE PRN Reason: Protocol Stop: 11/06/17 17:01 Vital Signs - 8 hr 11/06/17 11/06/17 11/06/17 07:12 07:30 07:48 Temperature 98.7 F Pulse Rate 79 Respiratory 16 16 16 Rate Blood Pressure 87/41 (mmHg) O2 Sat by Pulse 99 99 Oximetry 11/06/17 11/06/17 11:42 12:06 Temperature 97.8 F Pulse Rate 83 Respiratory 16 16 Rate Blood Pressure 131/46 (mmHg) O2 Sat by Pulse 100 Oximetry Oxygen Devices in Use Now: None Appearance: Patient is a 67yo female who appears stated age and is sitting in the chair in NAD. Eyes: No Scleral Icterus, PERRLA Ears/Nose/Mouth/Throat: NL Teeth, Lips, Gums, Clear Oropharnyx, Mucous Membranes Moist Neck: NL Appearance and Movements; NL JVP, Trachea Midline Respiratory: Symmetrical Chest Expansion and Respiratory Effort, Clear to Auscultation Cardiovascular: NL Sounds; No Murmurs; No JVD, RRR, No Edema Abdominal: NL Sounds; No Tenderness; No Distention, No Hepatosplenomegaly, - - Pulsatile mass in epigastric area without change from yesterday. Lymphatic: No Cervical Adenopathy Extremities: No Edema, No Clubbing, Cyanosis Skin: No Nodules or Sclerosis, - - CDI right hip dressing. Neurological: Alert and Oriented x 3, NL Sensation, NL Muscle Strength and Tone , - - CN II-XII intact. Result Diagrams: 11/06/17 04:24 11/06/17 04:24 Assess/Plan/Problems-Billing Assessment: Patient is a 67yo female with a PMH for Multiple aortic aneurysms, History of lung cancer s/p resection, PAD, CKD who is S/P a RTHA and is doing well. - Patient Problems (1) Post-operative state Current Visit: Yes Status: Acute Code(s): Z98.890 - OTHER SPECIFIED POSTPROCEDURAL STATES SNOMED Code(s): 48272677 Comment: Managment per Ortho. Pain controlled. Robertson removed. No Abdominal pain. H/H decreased an expected amount. PT/OT. (2) Aorta aneurysm Current Visit: Yes Status: Acute Code(s): I71.9 - AORTIC ANEURYSM OF UNSPECIFIED SITE, WITHOUT RUPTURE SNOMED Code(s): 45953410 Comment: Multiple Aortic Aneurysms. Reported as stable by vascular surgery in preoperative clearance, but there was concern for recent expansion on imaging from earlier this year from 4.4cm to 5.5cm. Unknown if this was an imaging error as it was not commented upon in preoperative note. Will attempt to get recent echo from [place]. Will repeat echo if needed. BP well controlled. Metoprolol PRN. Given aneurysms and CKD Beta blockers and lisinopril would be ideal choices for BP control instead of HCTZ. Will introduce these as tolerated. (3) Anemia Current Visit: Yes Status: Acute Code(s): D64.9 - ANEMIA, UNSPECIFIED SNOMED Code(s): 349192862 Comment: Chronic, elevated RBC count with significant microcytosis, normochromia and normal iron studies. Could be related to thallassemia. Would recommend outpatient evaluation as indicated. (4) CKD (chronic kidney disease) Current Visit: Yes Status: Acute Code(s): N18.9 - CHRONIC KIDNEY DISEASE, UNSPECIFIED SNOMED Code(s): 528103112 Comment: Stable, would benefit from ACEI to prevent progression. (5) Lung cancer Current Visit: Yes Status: Acute Code(s): C34.90 - MALIGNANT NEOPLASM OF UNSP PART OF UNSP BRONCHUS OR LUNG SNOMED Code(s): 301958644 Comment: S/P resection and mediastinal LN dissection. No planned Follow up. Would recommend regular oncologic follow up. (6) DVT prophylaxis Current Visit: Yes Status: Acute Code(s): WFZ1403 - SNOMED Code(s): 817494357 Comment: Lovenox to Coumadin per Ortho. (7) HTN (hypertension) Current Visit: Yes Status: Acute Code(s): I10 - ESSENTIAL (PRIMARY) HYPERTENSION SNOMED Code(s): 58722244 Comment: Normotensive. Control with BB and ACEI in setting of AA. (8) Full code status Current Visit: Yes Status: Acute Code(s): Z78.9 - OTHER SPECIFIED HEALTH STATUS SNOMED Code(s): 578318706 Status and Disposition: Inpatient, disposition per ortho.
[2017-11-06] MEDS ORDERED: Warfarin TAB(*) 4 MG PO ONE (17:00)
[2017-11-07] MEDS: oxyCODONE/Acetamin 5/325 MG* TAB PO PRN ×2 (03:42→10:33)
[2017-11-07 05:57] LABS: Hematocrit 25 % (35-47); Hemoglobin 7.8 g/dl (12.0-16.0); Mean Platelet Volume 7.4 um3 (7.4-10.4); Platelet Count 153 10^3/ul (150-450)
[2017-11-07 06:03] LABS: INR 1.77 (0.77-1.02)
[2017-11-07 08:16] VITALS: BP 113/53
[2017-11-07] MEDS: Magnesium Hydroxide LIQ* 30 ML UDC PO SCH (08:28)
[2017-11-07] MEDS: Docusate CAP* 100 MG PO SCH (08:28)
[2017-11-07] MEDS: Aspirin EC TAB* 81 MG TAB.EC PO SCH (08:28)
[2017-11-07] MEDS: Vitamin THERAPEUTIC TAB PO SCH (08:28)
--- NOTE | 2017-11-07 08:35 | PN ---
Subjective Date of Service: 11/07/17 Interval History: Ms. Jamison reports feeling well this morning and she is eager for discharge to home. Family History: Unchanged from Admission Social History: Unchanged from Admission Past Medical History: Unchanged from Admission Objective Active Medications: Acetaminophen (Tylenol Tab*) 650 mg PO Q4H PRN Aspirin (Aspirin Ec Tab*) 81 mg PO QAM BABS Bisacodyl (Dulcolax Supp*) 10 mg VT DAILY PRN Cyclobenzaprine HCl (Flexeril Tab*) 5 mg PO TID PRN Diphenhydramine HCl (Benadryl Iv*) 25 mg IV Q6H PRN Docusate Sodium (Colace Cap*) 100 mg PO BID BABS Lactated Ringer's (Lactated Ringers 1000 Ml Bag*) 1,000 mls @ 100 mls/hr IV PER RATE BABS Lactulose (Lactulose*) 30 ml PO Q6H PRN Magnesium Hydroxide (Milk Of Magnesia Liq*) 30 ml PO BID BABS Magnesium Hydroxide (Milk Of Magnesia Liq*) 30 ml PO Q6H PRN Metoprolol Tartrate (Lopressor Iv*) 5 mg IV Q6H PRN Metoprolol Tartrate (Lopressor Tab*) 25 mg PO BID BABS Morphine Sulfate (Morphine Vial*) 2 mg IV Q2H PRN Multivitamins (Theragran Tab*) 1 tab PO DAILY BABS Nalbuphine HCl (Nubain*) 5 mg IV ONCE PRN Ondansetron HCl (Zofran Inj*) 4 mg IV ONCE PRN Ondansetron HCl (Zofran Inj*) 4 mg IV Q6H PRN Oxycodone HCl (Roxycodone Tab*) 10 mg PO Q4H PRN Oxycodone/Acetaminophen (Percocet 5/325 Tab*) 2 tab PO Q4H PRN Oxycodone/Acetaminophen (Percocet 5/325 Tab*) 1 tab PO Q4H PRN Prochlorperazine Edisylate (Compazine Inj*) 5 mg IV ONCE PRN Scopolamine (Transderm-Scop 1.5 Mg Patch*) 1 patch TRANSDERM Q72H PRN Scopolamine (Transderm-Scop 1.5 Mg Patch*) 1 patch TRANSDERM Q72H PRN Vital Signs: Temp Pulse Resp BP Pulse Ox 98.3 F 86 16 113/53 95 11/07/17 07:21 11/07/17 07:21 11/07/17 08:28 11/07/17 07:21 11/07/17 07:21 Oxygen Devices in Use Now: None Appearance: Female lying in bed in NAD Eyes: No Scleral Icterus Ears/Nose/Mouth/Throat: Mucous Membranes Moist Neck: Trachea Midline Respiratory: Symmetrical Chest Expansion and Respiratory Effort, Clear to Auscultation Cardiovascular: NL Sounds; No Murmurs; No JVD, No Edema Abdominal: NL Sounds; No Tenderness; No Distention Extremities: No Edema Skin: No Rash or Ulcers Neurological: Alert and Oriented x 3, NL Muscle Strength and Tone Nutrition: Taking PO's Result Diagrams: 11/07/17 05:31 11/06/17 04:24 Assess/Plan/Problems-Billing Assessment: Ms. Jamison is a 67yo female with a PMH for multiple aortic aneurysms, history of lung cancer s/p resection, PAD, CKD who is S/P a RTHA. - Patient Problems (1) Post-operative state Comment: Managment per Ortho. Pain controlled. Robertson removed. H/H decreased an expected amount. PT/OT. (2) HTN (hypertension) Comment: SBP 110s. Switch from HCTZ to BB given AA, would benefit from ACEI added outpatient if can tolerate due to CKD. (3) Aorta aneurysm Comment: Multiple Aortic Aneurysms. Pre-operative clearance per vascular surgery, but there was concern for recent expansion on imaging from earlier this year from 4.4cm to 5.5cm. Patient notes plan for close follow up and eventual operative intervention. BP well controlled. Continue switch from HCTZ to metoprolol. (4) CKD (chronic kidney disease) Comment: Stable, would benefit from ACEI to prevent progression. (5) Anemia Comment: Chronic, elevated RBC count with significant microcytosis, normochromia and normal iron studies. Would recommend outpatient evaluation as indicated. (6) Lung cancer Comment: S/P resection and mediastinal LN dissection. Would recommend regular oncologic follow up. (7) DVT prophylaxis Comment: Lovenox to Coumadin per Ortho. (8) Full code status Comment: Status and Disposition: Inpatient, plan for discharge today per ortho.
[2017-11-07] MEDS ORDERED: Metoprolol Tartrate TAB* 25 MG PO SCH (09:00)
--- NOTE | 2017-11-07 09:24 | PN ---
Progress Note - Progress Note Date of Service: 11/07/17 SOAP: Subjective: [Pt reports she is doing well. Pain managed with po meds. Denies CP, SOB, dizziness. Feels ready to go home.] Objective: [a and O x 3, NAD In physical therapy at time of visit. R hip dressing changed - Surgical wound benign. No drainage or erythema. Calf soft, NT. Distal gross motor and NV function intact. Vital Signs: Temp Pulse Resp BP Pulse Ox 98.3 F 86 16 113/53 95 11/07/17 07:21 11/07/17 07:21 11/07/17 08:28 11/07/17 07:21 11/07/17 07:21 Laboratory Results - last 24 hr 11/06/17 11/07/17 11/07/17 09:16 05:21 05:31 Hgb 7.8 L Hct 25 L Plt Count 153 MPV 7.4 INR (Anticoag Therapy) 1.15 H 1.77 H ] Assessment: [67 you female s/p R SALUD pod #2] Plan: [INR 1.77 - 4 mg of coumadin tonight. Con't with current pain med D/C patient home with services Medicine has cleared for D/C Follow-up with Dr. Vallejo in 2 weeks]
--- NOTE | 2017-11-07 15:51 | DS ---
DISCHARGE SUMMARY: DATE OF ADMISSION: 11/05/17 DATE OF DISCHARGE: 11/07/17 PROVIDER: Ainsley Vallejo MD.* (DICTATED BY JENNA JONES) ADMITTING PHYSICIAN: Dr. Vallejo. ADMITTING DIAGNOSES: 1. Right hip osteoarthritis. 2. Hypertension. 3. Aortic aneurysm. 4. Lung cancer. DISCHARGE DIAGNOSES: 1. Status post left total hip arthroplasty. 2. Hypertension. 3. Aortic aneurysm. 4. Lung cancer. PROCEDURE: Right total hip arthroplasty. CONSULTANTS: Physical Therapy, Occupational Therapy, and Medicine. BRIEF HISTORY: Ms. Jamison is a 67-year-old female with severe degenerative osteoarthritis of her right hip. She failed conservative treatment measures and elected to undergo a right total hip arthroplasty on 11/05/[address] Vallejo. HOSPITAL COURSE: Ms. Jamison was admitted to [facility] on . She underwent an uncomplicated right total hip arthroplasty. Postoperatively, she recovered on the short stay surgical unit. Her Robertson catheter was removed on postoperative day 1 and she was able to urinate on her own. Postoperative day 2, she was passing flatus, did not have a bowel movement. She advanced to regular diet without difficulty. Her pain was well controlled with Percocet. She was restarted on home medications. Her vital signs and labs remained stable. She was able to bear weight as tolerated on the right lower extremity. She advanced appropriately with physical therapy and occupational therapy. Her DVT prophylaxis was bridged with Lovenox and Coumadin, until she reached therapeutic INR range. By postoperative day #2, she was orthopedically and medically stable for discharge home with services. PHYSICAL EXAM: General: On exam, the patient is noted to be calm and cooperative, in no acute distress. She is alert and oriented x3. Vital Signs: On day of discharge, temperature 99.6 degrees Fahrenheit, pulse rate 92, respiratory rate 21, O2 sats on room air 95%, blood pressure 112/57. Examination of the right lower extremity demonstrates the dressing overlying the right hip, which is clean, dry, and intact. Thigh is mildly swollen, but compressible. Distally, she has +2 palpable DP pulse. 5/5 ankle dorsiflexion and plantarflexion, and sensation is intact to light touch. LABORATORY DATA: On day of discharge, hemoglobin 7.8, hematocrit 25, INR 1.77. RADIOGRAPHS: Postoperative radiograph of the right hip demonstrate right total hip arthroplasty with satisfactory prosthesis placement. No acute bony abnormalities. DISCHARGE MEDICATIONS: 1. Multivitamin daily. 2. Vitamin C daily. 3. Hydrochlorothiazide 25 mg daily. 4. Coumadin dosing as directed. 5. Percocet 5/325 one to two tabs q. 4 to 6 hours p.r.n. pain. 6. Colace 100 mg p.o. t.i.d. p.r.n. constipation. CONDITION ON DISCHARGE: Stable. DISCHARGE INSTRUCTIONS: Ms. Jamison is a 67-year-old female, postoperative day #2, status post right total hip arthroplasty, which was uncomplicated. She is orthopedically and medically stable to be discharged to home with services. She has stable vital signs and labs. She will restart home medications. She will take 4 mg of Coumadin on , which is today; 2 mg on Saturday, 4 mg on Saturday, and 2 mg on Saturday. She will have her INR rechecked on Saturday and dosing will be adjusted as necessary. She will have INR draws on Mondays and with visiting nurse services. She will remain weightbearing as tolerated on the right lower extremity and follow posterior hip precautions. She will have home physical therapy twice a day. Percocet will be used for pain control and Colace for constipation. She will follow up in the office with Dr. Vallejo in 10 to 14 days for incision check and suture removal. She was instructed to call Dr. Vallejo or go immediately to the ER should she develop any new fevers, chills, incision pain, redness, or drainage. She was instructed to go immediately to the ER should she develop any chest pain or shortness of breath. JENNA JONES [id number]/[facility] #: [id number] UMER
== END 2017-11-07 10:50 | disposition home health service (06) | DRG 470 ==
LOC: AA 11-05 10:20 → SSU 11-05 18:44
PROVIDERS: ADMIT Orthopaedic Surgery Adult Reconstructive Orthopaedic Surgery; ATTEND Orthopaedic Surgery Adult Reconstructive Orthopaedic Surgery
PROC: 0SR904A Replacement of Right Hip Joint with Ceramic on Polyethylene Synthetic Substitute, Uncemented, Open Approach (ICD-10-PCS; principal; 2017-11-05 13:00)
DX: M16.11 Unilateral primary osteoarthritis, right hip (principal); M87.851 Other osteonecrosis, right femur; I10 Essential (primary) hypertension; F17.210 Nicotine dependence, cigarettes, uncomplicated; I12.9 Hypertensive chronic kidney disease with stage 1 through stage 4 chronic kidney disease, or unspecified chronic kidney disease; N18.9 Chronic kidney disease, unspecified; I71.2 Thoracic aortic aneurysm, without rupture; D64.9 Anemia, unspecified; I77.9 Disorder of arteries and arterioles, unspecified; Z79.01 Long term (current) use of anticoagulants; Z88.0 Allergy status to penicillin; Z85.118 Personal history of other malignant neoplasm of bronchus and lung; Z90.2 Acquired absence of lung [part of]; Z83.3 Family history of diabetes mellitus; Z80.3 Family history of malignant neoplasm of breast
CPT/HCPCS: 36415; 72170; 80048; 85014; 85018; 85049; 85610; A9270-GY; C1713; C1776; G8978-GP-CJ; G8979-GP-CI; G8987-GO-CK; G8988-GO-CI; G8989-GO-CI; J1240; J1650; J2250; J3010

== ENCOUNTER 2023-07-13 15:21 | Inpatient (IN) ==
[2023-07-13] MEDS: Iodixanol (CONTRAST) 320 MG/ML 100 ML SDV IV ONE ×2 (15:44→16:10)
[2023-07-13 15:47] LABS: Hematocrit 34.9 % (35-45); Hemoglobin 11.3 g/dL (11.5-14.3); Red Blood Count 5.35 10^6/uL (3.63-4.92); White Blood Count 9.7 10^3/uL (3.8-11.8)
[2023-07-13 15:56] LABS: Activated Partial Thrombo Time 29.5 seconds (26.0-38.0)
[2023-07-13 16:04] LABS: Albumin 4.1 g/dL (3.2-5.2); Albumin/Globulin Ratio 1.2 (1-3); Calcium 9.8 mg/dL (8.6-10.3); Creatinine, Serum 1.7 mg/dL (0.51-0.95); Direct Bilirubin 0.1 mg/dL (0.03-0.18); Globulin 3.5 g/dL (2-4); HDL Cholesterol 50.4 mg/dL; Indirect Bilirubin 0.5 mg/dL (0.3-1.0); Potassium 3.6 mmol/L (3.5-5.0); Total Bilirubin 0.6 mg/dL (0.2-1.0); Total Protein 7.6 g/dL (6.4-8.9); eGFR CKD-EPI 31.1 (>60)
[2023-07-13] MEDS ORDERED: TENECTEPLASE 50 MG VIAL KIT 5 MG/ML (reconstituted) IV ONE (16:32)
[2023-07-13 16:51] LABS: ABS Basophils 0.2 10^3/uL (0.0-0.1); ABS Eosinophils 0.1 10^3/uL (0.0-0.5); ABS Lymphocytes 0.8 10^3/uL (1.0-4.8); ABS Monocytes 0.9 10^3/uL (0.0-0.9); ABS Neutrophils 7.9 10^3/uL (1.5-7.6); ABS Nucleated RBC 0.01 10^3/ul; Acanthocytes 1+; Anisocytosis 1+; Eosinophil % 0.7 %; Mean Corpuscular Hemoglobin 21.2 pg (27-33); Mean Corpuscular Hgb Conc 32.5 g/dL (31-36); Mean Corpuscular Volume 65.2 fL (80-97); Mean Platelet Volume 8.4 fL (7.5-11.2); Microcytosis 3+; Nucleated Red Blood Cells % 0.1 %/100WBC (0.0-0.8); Platelet Count 201 10^3/uL (150-450); Red Cell Distribution Width 18.5 % (12-17); Schistocytes 1+; Target Cells 1+
[2023-07-13] MEDS ORDERED: Acetaminophen IV 1 GM/100ML 1,000 MG/100 ML BAG IV PRN (18:42)
[2023-07-13] MEDS ORDERED: Morphine 2 MG/ML SYRINGE IV PRN (18:43)
[2023-07-13] MEDS: Nicotine PATCH 14 MG/24 HR PATCH TRANSDERM ONE (19:17)
[2023-07-13] MEDS ORDERED: Metoprolol Tartrate 5 mg VIAL 5 ml VIAL (1 mg/ml) IV PRN (19:41)
[2023-07-13 23:08] LABS: Urine Appearance Clear; Urine Bilirubin Negative (Negative); Urine Blood Trace (Negative); Urine Color Light-Yellow; Urine Glucose Negative (Negative); Urine Ketones Negative (Negative); Urine Nitrite 2+ (Negative); Urine Protein 1+ (>=30 mg/dL) (Negative); Urine Urobilinogen Negative (Negative); Urine pH 7.5 (5.0-8.0)
[2023-07-13 23:12] LABS: Urine Bacteria Absent /HPF (Absent); Urine Red Blood Cell 2+(6-10/hpf) /HPF (0-Trace); Urine White Blood Cell 2+(11-20/hpf) /HPF (0-Trace)
[2023-07-14 05:27] LABS: ABS Basophils 0.1 10^3/uL (0.0-0.1); ABS Eosinophils 0.1 10^3/uL (0.0-0.5); ABS Lymphocytes 0.6 10^3/uL (1.0-4.8); ABS Monocytes 1.2 10^3/uL (0.0-0.9); ABS Neutrophils 7.7 10^3/uL (1.5-7.6); ABS Nucleated RBC 0.01 10^3/ul; Eosinophil % 1.2 %; Hematocrit 33.3 % (35-45); Hemoglobin 10.7 g/dL (11.5-14.3); Lymphocyte % 6.6 %; Mean Corpuscular Hemoglobin 20.9 pg (27-33); Mean Corpuscular Hgb Conc 32.2 g/dL (31-36); Mean Platelet Volume 9.5 fL (7.5-11.2); Nucleated Red Blood Cells % 0.1 %/100WBC (0.0-0.8); Platelet Count 231 10^3/uL (150-450); Red Blood Count 5.13 10^6/uL (3.63-4.92); Red Cell Distribution Width 17.8 % (12-17); White Blood Count 9.7 10^3/uL (3.8-11.8)
[2023-07-14 05:30] LABS: Calcium 9.4 mg/dL (8.6-10.3); Creatinine, Serum 1.49 mg/dL (0.51-0.95); Magnesium 1.5 mg/dL (1.9-2.7); Potassium 3.6 mmol/L (3.5-5.0); eGFR CKD-EPI 36.4 (>60)
[2023-07-15 06:41] LABS: Calcium 9.5 mg/dL (8.6-10.3); Creatinine, Serum 1.6 mg/dL (0.51-0.95); Magnesium 1.6 mg/dL (1.9-2.7); Phosphorus 3.7 mg/dL (2.5-5.0); Potassium 3.8 mmol/L (3.5-5.0); eGFR CKD-EPI 33.4 (>60)
[2023-07-15 08:19] LABS: ABS Basophils 0.1 10^3/uL (0.0-0.1); ABS Eosinophils 0.1 10^3/uL (0.0-0.5); ABS Monocytes 0.6 10^3/uL (0.0-0.9); ABS Neutrophils 4.1 10^3/uL (1.5-7.6); Anisocytosis 2+; Eosinophil % 1.1 %; Hematocrit 33.1 % (35-45); Hemoglobin 10.8 g/dL (11.5-14.3); Hypochromasia 2+; Mean Corpuscular Hemoglobin 21.1 pg (27-33); Mean Corpuscular Hgb Conc 32.5 g/dL (31-36); Microcytosis 2+; Platelet Count 199 10^3/uL (150-450); Red Blood Count 5.09 10^6/uL (3.63-4.92); Red Cell Distribution Width 17.7 % (12-17); Target Cells 1+; White Blood Count 8.9 10^3/uL (3.8-11.8)
[2023-07-15] MEDS: Nicotine GUM 2MG FRUIT FLAVOR PO PRN (11:32)
[2023-07-15 14:32] VITALS: BP 139/55
== END 2023-07-15 17:38 | disposition left against medical advice (07) | DRG 64 ==
LOC: ED 15:21 → EDHOLD 17:54 → SUATTDRO 17:54 → MEDTELE 07-14 19:58
PROVIDERS: ADMIT Internal Medicine; ATTEND Internal Medicine